=== PATIENT | male | born 1985 | race African-American/Black ===

== ENCOUNTER 2022-12-06 15:31 | Emergency (ER) | payer OTHER ==
[~2022-12-06] VITALS: Ht 185.4 cm; Wt 103.0 kg
[2022-12-06] MEDS ORDERED: KETO10TAB PO (18:43)
[2022-12-06] MEDS ORDERED: CYCL-707 PO (18:43)
[2022-12-06] MEDS ORDERED: KETOROLAC 60MG 2ML VIAL IM ONE (18:45)
[2022-12-06] MEDS ORDERED: LIDOCAINE 5% (LIDODERM) PATCH TD ONE (18:45)
[2022-12-06] MEDS ORDERED: ACETAMINOPHEN 325 MG TAB PO ONE (18:45)
[2022-12-06 19:13] VITALS: BP 134/86; TEMP 98.1; O2SAT 100
== END 2022-12-06 19:16 | disposition home or self-care (01) ==
LOC: M ED 15:31
DX: S39.012A Strain of muscle, fascia and tendon of lower back, initial encounter (principal); X50.0XXA Overexertion from strenuous movement or load, initial encounter; Y92.89 Other specified places as the place of occurrence of the external cause; Y93.89 Activity, other specified; Y99.8 Other external cause status
CPT/HCPCS: 96372; 99283; J1885